=== PATIENT | male | born 1955 | race Caucasian/White ===

== ENCOUNTER 2018-06-01 17:01 | Emergency (ER) | payer SELFPAY ==
[~2018-06-01] VITALS: Ht 170.2 cm; Wt 95.3 kg
[2018-06-01 17:05] VITALS: BP 132/73
--- NOTE | 2018-06-01 17:10 | NUR ---
62Y/M BIB SELF C/O CHEST PAIN. PT STATES " HIS CHEST PAIN STARTED LAST NIGHT." PT CHEST PAIN X2 DAYS WITH SOB, PT O2 IS 97% AT THIS TIME. PT VSS; AAOX4, BEDRAILS UP X1, BED DOWN, ER MD AWARE OF PT STATUS.
[2018-06-01] MEDS ORDERED: ASPIRIN 81 MG TAB.CHEW PO ONE (17:20)
--- NOTE | 2018-06-01 17:20 | NUR ---
X RAY AT BEDSIDE.
[2018-06-01 18:02] LABS: BASOPHILS # (AUTO) 0.1 K/uL (0.00-0.22); BASOPHILS % (AUTO) 0.7 % (0.0-2.0); EOSINOPHILS # (AUTO) 0.2 K/uL (0-0.4); EOSINOPHILS % (AUTO) 1.7 % (0.0-4.0); HEMATOCRIT 40.1 % (36-52); HEMOGLOBIN 13.1 g/dL (12.0-18.0); LYMPHOCYTES # (AUTO) 2.5 K/uL (2.0-11.5); MEAN CORPUSCULAR HEMOGLOBIN 28 pg (27-31); MEAN CORPUSCULAR HGB CONC 33 g/dL (33-37); MEAN CORPUSCULAR VOLUME 84.8 fL (80-94); MONOCYTES # (AUTO) 0.8 K/uL (0.8-1.0); MONOCYTES % (AUTO) 8.8 % (1.7-9.3); NEUTROPHILS # (AUTO) 5.9 K/uL (1.8-7.7); NEUTROPHILS % (AUTO) 62.8 % (42.2-75.2); PLATELET COUNT (AUTO) 226 K/uL (140-450); RED BLOOD CELL COUNT(AUTO) 4.72 MIL/uL (4.20-6.10); RED CELL DISTRIBUTION WIDTH 13.6 % (11.6-13.7); WHITE BLOOD COUNT (AUTO) 9.5 K/uL (4.8-10.8)
[2018-06-01 18:22] LABS: ALBUMIN 3.8 g/dL (3.4-5.0); ANION GAP 9.9 (8-16); CARBON DIOXIDE 27.7 mmol/L (21-32); CREATININE 1.4 mg/dL (0.7-1.3); POTASSIUM 3.6 mmol/L (3.5-5.1); TOTAL BILIRUBIN 0.7 mg/dL (0.0-1.0)
[2018-06-01] MEDS ORDERED: KETOROLAC 60 MG/2 ML VIAL IM ONE (19:00)
[2018-06-01 19:02] LABS: PROTHROMBIN TIME 10.1 secs (10.8-13.4)
--- NOTE | 2018-06-01 19:15 | NUR ---
RECEIVED REPORT FROM AM NURSE. PT RESTING IN BED, ALL NEEDS MET AT THIS TIME.
--- NOTE | 2018-06-01 20:03 | NUR ---
PT RESTING IN BED, VSS, RR EVEN AND UNLABORED, PT REPORTS DECREASED PAIN 5/10 AT THIS TIME, ALL NEEDS MET.
[2018-06-01 21:26] VITALS: BP 130/69
--- NOTE | 2018-06-01 21:27 | NUR ---
Patient discharged with v/s stable. Written and verbal after care instructions given and explained. Patient alert, oriented and verbalized understanding of instructions. Ambulatory with steady gait. All questions addressed prior to discharge. ID band removed. Patient advised to follow up with PMD. Rx of ASPIRIN given. Patient educated on indication of medication including possible reaction and side effects. Opportunity to ask questions provided and answered.
== END 2018-06-01 21:27 | disposition home or self-care (01) ==
LOC: MED 17:01
DX: R07.89 Other chest pain (principal); R06.02 Shortness of breath; E11.9 Type 2 diabetes mellitus without complications; Z90.49 Acquired absence of other specified parts of digestive tract; Z88.0 Allergy status to penicillin
CPT/HCPCS: 36415; 71045; 80053; 83880; 84484; 85025; 85610; 85730; 93005; 96372; 99285; J1885; Q0092

== ENCOUNTER 2018-07-30 10:56 | Emergency (ER) | payer SELFPAY ==
[~2018-07-30] VITALS: Ht 170.2 cm; Wt 95.3 kg
--- NOTE | 2018-07-30 10:57 | NUR ---
PT AMBULATES TO BED 8
[2018-07-30] MEDS ORDERED: ASPIRIN 81 MG TAB.CHEW PO ONE (11:00)
[2018-07-30 11:02] VITALS: BP 143/66
--- NOTE | 2018-07-30 11:02 | NUR ---
PT. CAME INTO THE ED DUE TO CHEST PAIN SINCE LAST NIGHT. PT. STATES " I WAS SITTING LAST NIGHT AND ALL OF A SUDDEN MY CHEST STARTED HURTING AND IT HASNT GONE AWAY". 8/10 NON RADIATING CHEST PAIN X LAST NIGHT. PT. HAS RR EVEN AND UNLABORED. DENIES N/V/D. PT STATES HE IS DIZZY. SKIN IS WARM AND MOIST TO TOUCH. ER MD NOTIFIED. SAFETY PRECAUTIONS INITIATED. WILL CONTINUE TO MONITOR.
--- NOTE | 2018-07-30 11:08 | NUR ---
XRAY AT BEDSIDE
--- NOTE | 2018-07-30 11:58 | NUR ---
PT. AMBULATED TO RESTROOM WITH STEADY GAIT, RR EVEN AND UNLABORED.
[2018-07-30 12:06] LABS: BASOPHILS # (AUTO) 0.1 K/uL (0.00-0.22); BASOPHILS % (AUTO) 0.8 % (0.0-2.0); EOSINOPHILS # (AUTO) 0.2 K/uL (0-0.4); EOSINOPHILS % (AUTO) 2.8 % (0.0-4.0); HEMATOCRIT 41.7 % (36-52); HEMOGLOBIN 13.7 g/dL (12.0-18.0); LYMPHOCYTES # (AUTO) 2.4 K/uL (2.0-11.5); MEAN CORPUSCULAR HEMOGLOBIN 28 pg (27-31); MEAN CORPUSCULAR HGB CONC 33 g/dL (33-37); MEAN CORPUSCULAR VOLUME 84.3 fL (80-94); MONOCYTES # (AUTO) 0.5 K/uL (0.8-1.0); MONOCYTES % (AUTO) 6.6 % (1.7-9.3); NEUTROPHILS # (AUTO) 3.8 K/uL (1.8-7.7); NEUTROPHILS % (AUTO) 54.8 % (42.2-75.2); PLATELET COUNT (AUTO) 249 K/uL (140-450); RED BLOOD CELL COUNT(AUTO) 4.95 MIL/uL (4.20-6.10); RED CELL DISTRIBUTION WIDTH 13.5 % (11.6-13.7)
--- NOTE | 2018-07-30 12:11 | NUR ---
DR MINER EVALUATING AT BEDSIDE
[2018-07-30] MEDS ORDERED: KETOROLAC 60 MG/2 ML VIAL IM ONE (12:15)
[2018-07-30 12:38] LABS: ANION GAP 5.6 (8-16); CARBON DIOXIDE 30.9 mmol/L (21-32); POTASSIUM 4.5 mmol/L (3.5-5.1)
[2018-07-30 12:39] LABS: ALBUMIN 3.5 g/dL (3.4-5.0); CREATININE 1.2 mg/dL (0.7-1.3); TOTAL BILIRUBIN 0.3 mg/dL (0.0-1.0)
[2018-07-30 12:40] LABS: PROTHROMBIN TIME 9.2 secs (10.8-13.4)
--- NOTE | 2018-07-30 12:40 | NUR ---
PT. PROVIDED WITH A LUNCH TRAY, TOLERATING WELL . DENIES ANY NAUSEA. WILL CONTINUE TO MONITOR.
[2018-07-30 12:53] VITALS: BP 141/78
== END 2018-07-30 12:53 | disposition home or self-care (01) ==
LOC: MED 10:56
DX: R07.89 Other chest pain (principal); R06.02 Shortness of breath; R05 Cough; E11.9 Type 2 diabetes mellitus without complications; Z88.0 Allergy status to penicillin; Z90.49 Acquired absence of other specified parts of digestive tract
CPT/HCPCS: 36415; 71045; 80053; 82948; 83880; 84484; 85025; 85610; 85730; 93005; 96372; 99285; J1885; Q0092

== ENCOUNTER 2018-10-10 08:22 | Inpatient (IN) | payer MEDICAID ==
[~2018-10-10] VITALS: Ht 172.7 cm; Wt 89.8 kg
[2018-10-10 08:24] VITALS: BP 139/77
--- NOTE | 2018-10-10 08:33 | NUR ---
62 YO M, BIB BY SELF AMBULATORY. PT STATES TO STARTED HAVING CHEST PAIN ON MONDAY; FEELS BETTER WHEN RESTING. PT STATES TO HAVE 6 OUT OF 10 STARP PAIN TOWARDS THE LEFT SIDE OF HIS CHEST. +SOB; +WEAKNESS/+DIZZINESS; +COUGH/DRY, NON-PRODUCTIVE. PT STATES TO HAVE HAD A HEART ATTACK 9 YEARS AGO FOLLOW BY A TIA 1 MONTH AFTER. PT STATES TO LAST SMOKED CRACK 1 MONTH AGO. PT STATES TO QUIT SMOKING 1 YR AGO. PT STATES TO DRINK ALOCHOL OCCASIONALY. PT STATES TO TAKING CHOLESTEROL MEDICATION BUT DOES NOT KNOW THE NAME OF DOSAGE, LAST TOOK MED THIS MORNING. DENIES N/V/D. HX: HYPERLIPIDEMIA, DIABETES, HEART ATTACK, TIA RX: CHOLESTERAL MEDICATION, METFORMIN, NITRO
[2018-10-10] MEDS ORDERED: NITROGLYCERIN 0.4 MG TAB SL ONE (08:40)
[2018-10-10] MEDS ORDERED: NITROGLYCERIN 2% 1 GM PKT TP ONE (08:40)
[2018-10-10] MEDS ORDERED: ONDANSETRON 4 MG/2 ML VIAL IVP ONE (08:40)
[2018-10-10] MEDS ORDERED: ASPIRIN 81 MG TAB.CHEW PO ONE (08:40)
[2018-10-10] MEDS ORDERED: MORPHINE SULFATE 2 MG/ML SYR IVP ONE (08:40)
--- NOTE | 2018-10-10 09:02 | NUR ---
PHLEB AT BEDSIDE AT THIS TIME
[2018-10-10 09:11] LABS: BASOPHILS # (AUTO) 0.1 K/uL (0.00-0.22); BASOPHILS % (AUTO) 0.6 % (0.0-2.0); EOSINOPHILS # (AUTO) 0.3 K/uL (0-0.4); EOSINOPHILS % (AUTO) 2.8 % (0.0-4.0); HEMATOCRIT 42.2 % (36-52); HEMOGLOBIN 13.7 g/dL (12.0-18.0); LYMPHOCYTES # (AUTO) 3.2 K/uL (2.0-11.5); LYMPHOCYTES % (AUTO) 35.1 % (20.5-51.1); MEAN CORPUSCULAR HEMOGLOBIN 28 pg (27-31); MEAN CORPUSCULAR HGB CONC 32 g/dL (33-37); MEAN CORPUSCULAR VOLUME 85.4 fL (80-94); MONOCYTES # (AUTO) 0.5 K/uL (0.8-1.0); NEUTROPHILS # (AUTO) 5.1 K/uL (1.8-7.7); NEUTROPHILS % (AUTO) 55.5 % (42.2-75.2); PLATELET COUNT (AUTO) 269 K/uL (140-450); RED BLOOD CELL COUNT(AUTO) 4.94 MIL/uL (4.20-6.10); RED CELL DISTRIBUTION WIDTH 13.7 % (11.6-13.7); WHITE BLOOD COUNT (AUTO) 9.1 K/uL (4.8-10.8)
--- NOTE | 2018-10-10 09:20 | NUR ---
FLUSHED WELL W/O RESISTANCE; NO REDNESS OR SWELLING NOTED; PT TOLERATED WELL.
[2018-10-10 09:21] LABS: ANION GAP 13.3 (8-16); CARBON DIOXIDE 27.9 mmol/L (21-32); CREATININE 1.3 mg/dL (0.7-1.3); POTASSIUM 4.2 mmol/L (3.5-5.1)
[2018-10-10 09:26] LABS: ALBUMIN 3.4 g/dL (3.4-5.0); TOTAL BILIRUBIN 0.4 mg/dL (0.0-1.0)
[2018-10-10 10:12] LABS: BARBITURATE, URINE NEG. ng/ml (NEG <=200); BENZODIAZEPINE, URINE NEG. ng/mL (NEG <=200); CANNABINOID, URINE NEG. ng/mL (NEG <=50); COCAINE, URINE POS. ng/mL (NEG <=300); OPIATE, URINE NEG. ng/mL (NEG <=2000); PHENCYCLIDINE SCREEN,URINE NEG. ng/mL (NEG <=25)
[2018-10-10] MEDS: NACL 0.9% 1,000 ML IV SCH (10:17)
[2018-10-10] MEDS ORDERED: HYDROcodone/APAP 7.5/325 MG 1 TAB PO PRN (10:20)
[2018-10-10] MEDS ORDERED: ONDANSETRON 4 MG/2 ML VIAL IVP PRN (10:20)
[2018-10-10] MEDS ORDERED: ACETAMINOPHEN 325 MG TAB PO PRN (10:20)
[2018-10-10 10:29] LABS: APPEARANCE,URINE SLIGHTLY HAZY (CLEAR); BLOOD, URINE MODERATE (NEGATIVE); COLOR,URINE YELLOW (YELLOW); UGLUCOSE NEGATIVE (NEGATIVE)
[2018-10-10 10:30] LABS: BILIRUBIN,URINE NEGATIVE (NEGATIVE); LEUKOCYTE ESTERASE ,URINE NEGATIVE (NEGATIVE); NITRITE, URINE NEGATIVE (NEGATIVE)
[2018-10-10 10:47] LABS: RBC,URINE 3-10 (FEW) /HPF (0-5); WBC,URINE 0-5 (RARE) /HPF (0-5)
[2018-10-10 11:09] LABS: PROTHROMBIN TIME 9.5 secs (10.8-13.4)
[2018-10-10 11:19] LABS: FREE T4 (FREE THYROXINE) 0.75 ng/dL (0.76-1.46); THYROID STIMULATING HORMONE 1.86 uIU/mL (0.34-3.74)
[2018-10-10] MEDS ORDERED: NITROGLYCERIN 0.4 MG TAB SL PRN (11:30)
[2018-10-10] MEDS ORDERED: INSULIN LISPRO SLIDING SCALE 100 UNITS/ML VIAL SUBQ PRN (11:30)
[2018-10-10] MEDS ORDERED: DEXTROSE 50% 50 ML SYR IVP PRN ×2 (11:30)
[2018-10-10] MEDS: BLOOD GLUCOSE MONITORING 1 DEV DEV FS SCH ×3 (11:30→20:54)
[2018-10-10 12:05] VITALS: BP 135/81
--- NOTE | 2018-10-10 12:05 | NUR ---
RECEIVED REPORT FROM ED RN ROSE MARY. PT CAME FROM HOME. PT IS AAOX4, AMBULATED FROM GURNEY TO BED. ON ROOM AIR. PT HAS RIGHT AC 22G IV INTACT AND PATENT. PT SKIN INTACT. PT STATES HE STILL HAS MILD PAIN IN HIS CHEST. WILL MEDICATE ACCORDINGLY. PT STATES HE HAS NOT RECEIVED FLU/PNA VACCINE. PT GIVEN NITRO, MORPHINE, ZOFRAN, ASPIRIN IN ED. PT STABLE AT THIS TIME. WILL CONTINUE TO MONITOR AND ROUND FREQUENTLY.
--- NOTE | 2018-10-10 12:05 | NUR ---
Patient will be admitted to care of [facility]. Admited to TELE. Will go to room 104B. Belongings list completed. Report to JEFFREY BAUTISTA. VSS at this time.
--- NOTE | 2018-10-10 13:58 | NUR ---
PT RESTING IN BED. NO COMPLAINTS OF PAIN. STABLE AT THIS TIME. ALL NEEDS MET. WILL ROUND FREQUENTLY. CALL LIGHT WITHIN REACH, BED IN LOW POSITION.
--- NOTE | 2018-10-10 15:35 | NUR ---
PT WALKING IN HALLWAY. NO SIGNS OF SOB OR DISTRESS.
[2018-10-10 16:00] VITALS: BP 135/78
--- NOTE | 2018-10-10 17:26 | NUR ---
PT RESTING IN BED. BED IN LOW POSITION, CALL LIGHT WITHIN REACH. PT IN STABLE CONDITION.
[2018-10-10] MEDS: SODIUM PHOS / POTASSIUM PHOS 1 PKT PDR PO SCH (17:53)
--- NOTE | 2018-10-10 19:42 | NUR ---
ENDORSED PT TO COLLAR STAY FUSER TENDER NURSE FOR CONTINUITY OF CARE. PT IN STABLE CONDITION.
--- NOTE | 2018-10-10 19:46 | NUR ---
RECEIVED FROM AM RN IN BED AWAKE AND ALERT. ORIENTED X 4. ROM X 4 CLEAR SPEECH. ABLE TO TALK AND UNDERSTAND [place]. CARE PLANS FOR THE NIGHT DISCUSSED WITH HIM. CALL LIGHT WITH IN REACH AND ON TELEMETRY MONITORING WITH DX. OF CHEST PAIN. IVF SITE TO RIGHT INTACT AND WITH GOOD BLOOD RETURN.
[2018-10-10 19:56] VITALS: BP 130/71
[2018-10-10] MEDS: METOPROLOL 25 MG TAB PO SCH (20:49)
[2018-10-10] MEDS ORDERED: ATORVASTATIN 20 MG TAB PO SCH (21:00)
--- NOTE | 2018-10-10 21:24 | NUR ---
PT. PROVIDED WITH SNACK RT BLOOD SUGAR PER FINGERSTICK 87 MG /DL. ABLE TO VERBALIZE WELL. NO COMPLAINTS OF ANY PAIN DONE. DENIES PAIN AT THIS TIME. ENCOURAGED TO CALL FOR ANY HELP HE MAY NEED OR IF IN PAIN. "OK" .
[2018-10-10 23:53] VITALS: BP 103/57
--- NOTE | 2018-10-10 23:56 | NUR ---
PT. SLEEPING. WOKE UP EASILY WHEN VITAL SIGNS TAKEN. VERBALIZES WELL. DENIES ANY PAIN AT THIS TIME. CALL LIGHT WITH IN REACH.
--- NOTE | 2018-10-11 03:30 | NUR ---
PT. SLEEPING. NO RESTLESSNESS. INDEPENDENT. CALL LIGHT WITH IN REACH. TELEMETRY MONITORING.
[2018-10-11 05:04] VITALS: BP 105/52
[2018-10-11] MEDS: BLOOD GLUCOSE MONITORING 1 DEV DEV FS SCH (05:41)
[2018-10-11] MEDS: NACL 0.9% 1,000 ML IV SCH (05:41)
--- NOTE | 2018-10-11 06:11 | NUR ---
SLEPT WELL THIS SHIFT. CALL LIGHT ALWAYS WITH IN REACH. MEDICATED WITH TYLENOL P.O. AT THIS TIME RT HEADACHE COMPLAINTS. A/O X 4. ROM X 4. CLEAR SPEECH. NO CHEST PAIN COMPLAINTS DONE.
--- NOTE | 2018-10-11 06:12 | NUR ---
BLOOD SUGAR CHECK FOR AM 120 MG/DL. NO COVERAGE OF INSULIN.
--- NOTE | 2018-10-11 07:23 | NUR ---
ENDORSED TO THE NEXT RN FOR CONTINUITY OF CARE. INDEPENDENT AND WALKING AROUND HIS ROOM AT THIS TIME WITH OUT ANY ASSIST. NO CHEST PAIN COMPLAINTS DONE THIS SHIFT.
--- NOTE | 2018-10-11 07:30 | NUR ---
RECEIVED PATIENT REPORT AT BEDSIDE. PATIENT AWAKE AND ALERT. NO S/S OF DISTRESS. PATIENT ON ROOM AIR. NO SOB. PATIENT DENIES CHEST PAIN AT THIS TIME. PATIENT ON TELE MONITORING. BED LOWERED WITH CALL LIGHT WITHIN REACH. WILL CONTINUE TO MONITOR
[2018-10-11 07:52] LABS: BASOPHILS % (AUTO) 0.5 % (0.0-2.0); EOSINOPHILS # (AUTO) 0.3 K/uL (0-0.4); EOSINOPHILS % (AUTO) 3.3 % (0.0-4.0); HEMATOCRIT 38.1 % (36-52); HEMOGLOBIN 12.5 g/dL (12.0-18.0); LYMPHOCYTES # (AUTO) 2.5 K/uL (2.0-11.5); LYMPHOCYTES % (AUTO) 31.6 % (20.5-51.1); MEAN CORPUSCULAR HEMOGLOBIN 28 pg (27-31); MEAN CORPUSCULAR HGB CONC 33 g/dL (33-37); MEAN CORPUSCULAR VOLUME 84.5 fL (80-94); MONOCYTES # (AUTO) 0.6 K/uL (0.8-1.0); NEUTROPHILS # (AUTO) 4.6 K/uL (1.8-7.7); NEUTROPHILS % (AUTO) 57.6 % (42.2-75.2); PLATELET COUNT (AUTO) 256 K/uL (140-450); RED BLOOD CELL COUNT(AUTO) 4.51 MIL/uL (4.20-6.10); RED CELL DISTRIBUTION WIDTH 13.2 % (11.6-13.7)
[2018-10-11 07:57] VITALS: BP 126/74
[2018-10-11 08:03] LABS: MAGNESIUM 1.9 mg/dL (1.8-2.4); PHOSPHORUS 3.2 mg/dL (2.5-4.9)
[2018-10-11 08:20] LABS: ANION GAP 11.4 (8-16); CREATININE 1.2 mg/dL (0.7-1.3); POTASSIUM 4.4 mmol/L (3.5-5.1)
[2018-10-11] MEDS ORDERED: SERT-146 PO (08:52)
[2018-10-11] MEDS ORDERED: METF1000 PO (08:57)
[2018-10-11] MEDS ORDERED: ATOR20TA40 PO (08:57)
[2018-10-11] MEDS ORDERED: SERTRALINE 50 MG TAB PO SCH (09:00)
[2018-10-11] MEDS: METOPROLOL 25 MG TAB PO SCH (09:00)
[2018-10-11] MEDS ORDERED: ASPIRIN 81 MG TAB.CHEW PO SCH (09:00)
[2018-10-11] MEDS ORDERED: LISINOPRIL 5 MG TAB PO SCH (09:00)
--- NOTE | 2018-10-11 09:08 | NUR ---
PATIENT HAS BEEN SCREENED AND CATEGORIZED MODERATE NUTRITION RISK. PATIENT WILL BE SEEN WITHIN 3-5 DAYS OF ADMISSION. 10/12/18 10/14/[address]
[2018-10-11] MEDS: SODIUM PHOS / POTASSIUM PHOS 1 PKT PDR PO SCH (09:41)
[2018-10-11 09:50] LABS: CHOL/HDL RATIO 4.7 (1-4.5)
[2018-10-11] MEDS ORDERED: LORATADINE 10 MG TAB PO SCH (11:12)
--- NOTE | 2018-10-11 11:30 | NUR ---
PATIENT DISCHARGED TO HOME. DISCHARGE INSTRUCTIONS AND DISCHARGE PRESCRIPTIONS GIVEN. PATIENT VERBALIZED UNDERSTANDING. IV LINE DISCONTINUED. PATIENT LEFT WITH ALL HIS BELONGINGS AND DISCHARGE PAPERS. PATIENT LEFT IN STABLE CONDITION
[2018-10-12] MEDS ORDERED: LORATADINE 10 MG TAB PO SCH (09:00)
== END 2018-10-11 11:30 | disposition home or self-care (01) | DRG 203 ==
LOC: MED 08:22 → MTU 10:17
PROVIDERS: ADMIT General Practice; ATTEND General Practice
DX: M94.0 Chondrocostal junction syndrome [Tietze] (principal); E11.65 Type 2 diabetes mellitus with hyperglycemia; E83.39 Other disorders of phosphorus metabolism; E78.5 Hyperlipidemia, unspecified; I25.2 Old myocardial infarction; E78.00 Pure hypercholesterolemia, unspecified; I25.10 Atherosclerotic heart disease of native coronary artery without angina pectoris; F32.9 Major depressive disorder, single episode, unspecified; F14.10 Cocaine abuse, uncomplicated; Z88.0 Allergy status to penicillin; Z90.49 Acquired absence of other specified parts of digestive tract; Z59.0 Homelessness
CPT/HCPCS: 36415; 71045; 80048; 80053; 80305; 81001; 82150; 82948; 83036; 83690; 83735; 83880; 84100; 84439; 84443; 84484; 85025; 85610; 85730; 87081; 93005; 96374; 96375; 99285; J1815; J2270; J2405; J7030; Q0092